=== PATIENT | female | born 2005 | race Caucasian/White ===

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

== ENCOUNTER 2023-01-19 11:52 | Emergency (ER) | payer OTHER, MEDICAID, SELFPAY ==
[2023-01-19] VITALS (8 sets, daily range): BP systolic 115–142; BP diastolic 67–79; PULSE 89–104; RESP 16–20; TEMP 36.7–36.9; O2SAT 98–100; BMI 27.2
[2023-01-19 12:04] LABS: Microscopic, Urine URINE MICROSCOPIC (MICROSCOPIC)
--- NOTE | 2023-01-19 12:05 | HMH.EDGENADL ---
Discharge Plan Disposition Patient Disposition: Home, Self-Care Condition: Fair Prescriptions Prescriptions: New ciprofloxacin HCl [Cipro] 500 mg tablet 500 mg PO BID Qty: 20 0RF metronidazole 500 mg tablet 500 mg PO Q12H 10 Days Qty: 20 0RF dicyclomine 20 mg tablet 20 mg PO QID PRN (Reason: abdominal pain) Qty: 20 0RF Referrals Follow up/Referrals: Provider,Referral, MD [Primary Care Provider] - See instructions Clinical Impressions Clinical Impression: Abdominal pain Instructions Patient Instructions: Acute Abdominal Pain, DI for Acute Abdominal Pain Discharge ED Provider: Petr Ashby General Adult HPI General Chief complaint: Abdominal Pain Stated complaint: Abd pain vomiting diarrhea Time Seen by Provider: 01/19/23 11:55 History of Present Illness HPI narrative: This is a 17-year-old white female who was at a friend's last night had passed. The aunt today presents with crampy abdominal pain nausea vomiting diarrhea. No fevers no chills no melena hematochezia or hematemesis patient said the pain occurs intermittently nonprovoked self-limited. No dysuria pyuria or hematuria. Related Data Previous Rx's Medication Instructions Recorded ciprofloxacin HCl 500 mg tablet 500 mg PO BID #20 tabs 01/19/23 (Cipro) dicyclomine 20 mg tablet 20 mg PO QID PRN abdominal pain 01/19/23 #20 tabs metronidazole 500 mg tablet 500 mg PO Q12H 10 days #20 tabs 01/19/23 Allergies Allergy/AdvReac Type Severity Reaction Status Date / Time Penicillins Allergy hives Verified 12/10/22 10:20 [facility] Disclaimer: The information contained in this section may have been updated after the patient was seen, as this information can be updated by other users. Medical History Acute blood loss anemia Surgical History No history of previous surgery Family History Other No significant family history Social History Smoking Status: Never smoker alcohol intake: never substance use type: denies use current occupational status: employed Travel in the last 8 weeks: None household members: family housing: house ROS Obtained: Yes All systems reviewed & no additional complaints except as documented Skin no rash or lesions HEENT no runny nose sore throat Pulmonary no cough or shortness of breath Cardiovascular no chest pain pressure heaviness GI see HPI no dysuria pyuria hematuria Musculoskeletal no neck or back pain Endocrine no polydipsia polyuria or polyphasia Psych no SI or HI The rest of the systems were reviewed and found to be negative Physical Exam Narrative Physical exam: Skin: Warm and dry HEENT: Normocephalic atraumatic extract muscles are intact pupils are equal and reactive to light Neck: Supple nontender Lungs: Clear to auscultation Heart: Regular rate and rhythm Abdomen: NABS soft nontender Extremities: No clubbing cyanosis or edema Neurologic: No unilateral weakness or numbness Lymphatic: No cervical or inguinal adenopathy Musculoskeletal: No tenderness of the dorsal or lumbar spine Psych: No SI or HI General General appearance: alert Respiratory Respiratory exam: Present normal lung sounds bilaterally Cardiovascular Cardiovascular exam: Present regular rate Neurological Exam Neurological exam: Present alert Medical Decision Making Rodrigo Inquiry Pt receiving controlled substance: No Vital Signs: 01/19/23 12:28 01/19/23 12:30 01/19/23 13:00 Temperature 98.5 F Temperature Source Oral Pulse Rate 96 H 89 Pulse Rate [Left Radial] 102 H Respiratory Rate 20 Blood Pressure 115/69 120/69 Blood Pressure [Right Arm] 142/79 H Blood Pressure Mean 84 85 Blood Pressure Mean [Right Arm] 100 02 Sat by Pulse Oximetry 98 98 99 Oxygen
[2023-01-19 12:08] LABS: Appearance,Urine CLEAR (Clear); Bilirubin,Urine Negative (Negative); Blood, Urine Negative (Negative); Color,Urine YELLOW (Yellow); Glucose,Urine (UA) Negative (Negative); Ketones,Urine Negative (Negative); Leukocyte Esterase,Urine Negative (Negative); Nitrate,Urine Negative (Negative); Protein,Urine Negative (Negative); Specific Gravity, Urine 1.015 (1.005-1.030); Urobilinogen,Urine 0.2 EU/dl (0.2)
[2023-01-19 12:10] LABS: Urine Pregnancy, HCG Qual. Negative (Negative)
[2023-01-19 12:14] LABS: Basophils % 0.2 % (0.1-2.0); Eosinophils # 0.2 K/mm3 (0.0-0.4); Eosinophils % 1.2 % (0.1-12.0); Lymphocytes # 0.7 K/mm3 (0.7-4.5); Lymphocytes % 4.1 % (10-50); Mean Corpuscular HGB Conc 33.3 g/dL (31.8-35.4); Mean Corpuscular Hemoglobin 26.5 pg (27.0-31.2); Mean Corpuscular Volume 79.6 fl (81-99); Mean Platelet Volume 8.2 fl (7.4-10.4); Monocytes # 0.7 K/mm3 (0.1-1.0); Monocytes % 4.7 % (1.7-9.3); Neutrophils # 14.3 K/mm3 (1.8-7.8); Neutrophils % 89.8 % (37.0-80.0); Platelet Count 289 K/mm3 (142-424); Red Blood Count 5.27 M/mm3 (4.20-5.40); Red Cell Distribution Width 14.3 % (11.5-17.5); White Blood Count 15.9 K/mm3 (4.5-13.0)
[2023-01-19 12:17] LABS: Sodium 138 mmol/L (136-145)
[2023-01-19 12:20] LABS: Alanine Aminotransferase 26 U/L (12-78); Albumin Level 4.3 g/dl (3.5-5.0); Albumin/Globulin Ratio 1.3 (1.1-1.8); Alkaline Phosphatase 79 U/L (38-126); Aspartate Amino Transferase 27 U/L (14-36); Bilirubin,Total 0.5 mg/dl (0.2-1.3); Blood Urea Nitrogen 13 mg/dl (7-17); Carbon Dioxide 27 mmol/L (22.0-30.0); Chloride 100 mmol/L (98-107); Estimated Glomerular Filt Rate 108 ml/min (>60); GFR (African American) 130 ML/MIN (>60); Globulin 3.3 g/dL (1.3-3.2); Total Protein,Serum 7.6 g/dl (6.3-8.2)
[2023-01-19 12:21] LABS: Glucose 118 mg/dl (74-100)
[2023-01-19 12:21] LABS: Bacteria,Urine Trace /lpf; WBC,Urine Occasional #/hpf (0-3)
[2023-01-19 12:23] LABS: Lipase 46 U/L (23-300)
[2023-01-19 12:26] LABS: MANUAL DIFFERENTIAL MANUAL DIFFERENTIAL (MANUAL DIFF)
--- NOTE | 2023-01-19 12:35 | PC.NURSE ---
Rounded on patient; no other needs at this time. Friend at BS. Call morrison within reach
[2023-01-19 12:36] LABS: Eosinophils % 1 % (0-3); Lymphocytes % 5 % (10-50); Monocytes % 6 % (2-9); Neutrophils % 88 % (42-76); Platelet Estimate Normal; RBC Morphology Normal; Total Cells Counted 100
--- NOTE | 2023-01-19 12:50 | CT_ITS ---
FINAL REPORT TECHNIQUE: Postcontrast axial images through the abdomen and pelvis were performed. This study was performed with techniques to keep radiation doses as low as reasonably achievable, (ALARA). Individualized dose reduction techniques using automated exposure control or adjustment of mA and/or kV according to the patient's size were employed. CLINICAL HISTORY: abd pain, n/v/d FINDINGS: Abdomen: The lung bases are clear. The liver is normal in size and attenuation. The gallbladder is present. The spleen is unremarkable. The adrenals are normal. The pancreas is unremarkable. The kidneys enhance appropriately. The aorta is normal in caliber. No free fluid or adenopathy is identified. No findings for mechanical bowel obstruction are identified. There is abnormal mucosal thickening throughout the distal small bowel extending to the terminal ileum. Pelvis: The appendix is normal. The urinary bladder is unremarkable. No free fluid, free air, abscess or adenopathy is identified. The uterus is present. There are small cysts or follicles in the ovaries. IMPRESSION: Abnormal mucosal thickening of the distal small bowel could represent infectious enteritis versus inflammatory bowel disease. Reviewed, Interpreted and Dictated by Doc Ball MD Transcribed by [employer] Authenticated and [facility]
--- NOTE | 2023-01-19 14:31 | PC.NURSE ---
Rounded on patient; no needs at this time. Call morrison within reach. Aware taht we are waiting on test results
== END 2023-01-19 15:01 | disposition home or self-care (01) ==
PROVIDERS: Emergency Provider Emergency Medicine
DX: R10.9 Unspecified abdominal pain (principal); R11.2 Nausea with vomiting, unspecified; R19.7 Diarrhea, unspecified; R93.5 Abnormal findings on diagnostic imaging of other abdominal regions, including retroperitoneum; D72.829 Elevated white blood cell count, unspecified
CPT/HCPCS: 74177; 80053; 81001; 81025; 83690; 85007; 85025; 96361; 96374; 99284; J2405; Q9967

== ENCOUNTER 2023-04-04 11:52 | Emergency (ER) | payer OTHER, MEDICAID, SELFPAY ==
[2023-04-04 12:00] VITALS: BP 143/70; PULSE 79; RESP 20; TEMP 36.3; O2SAT 100; BMI 29.4
[2023-04-04 12:16] LABS: UTC Strep Screen (Rapid) Negative (Negative)
--- NOTE | 2023-04-04 12:17 | EXP.UTC ---
Discharge Plan Disposition Patient Disposition: Home, Self-Care Condition: Good Prescriptions Prescriptions: New prednisone 20 mg tablet 20 mg PO BID Qty: 10 0RF pseudoephedrine HCl [Sudafed 12 Hour] 120 mg tablet extended release 120 mg PO BID PRN (Reason: nasal congestion) Qty: 20 0RF Referrals Follow up/Referrals: Provider,Referral, MD [Primary Care Provider] - See instructions Activity Restrictions/Add. Instructions Additional Instructions/Restrictions: rest, fluids, meds as directed Clinical Impressions Clinical Impression: Upper respiratory infection Instructions Patient Instructions: How to Care for Someone with COVID-19 Discharge ED Provider: Jazmin Rice [facility] [place] HPI General Stated complaint: body aches/chills Mode of Arrival: Ambulatory Source of Information: Patient Limitations: No Limitations Time Seen by Provider: 04/04/23 12:17 Description of Symptoms (Recalled from Triage Doc. by RN): PATIENT C/O BODY ACHES, CHILLS AND NO TASTE SINCE WEDNESDAY HEENT Symptoms (Recalled from RN notes): No Resp Symptoms (Recalled from RN notes): No Skin Symptoms (Recalled from RN notes): No MS Symptoms (Recalled from RN notes): No Functional Status (Recalled from RN notes): WNL History of Present Illness Provider Complaint: 2 day history body aches, chills, lost of taste and smell. No fever. Onset (ago): day(s) (2) Relieving factors: none Exacerbating factors: none Associated symptoms: denies other symptoms Treatments prior to arrival: none Related Data Previous Rx's Medication Instructions Recorded prednisone 20 mg tablet 20 mg PO BID #10 tabs 04/04/23 pseudoephedrine HCl 120 mg 120 mg PO BID PRN nasal congestion 04/04/23 tablet,extended release (Sudafed #20 tabs 12 Hour) Allergies Allergy/AdvReac Type Severity Reaction Status Date / Time Penicillins Allergy hives Verified 12/10/22 10:20 Worker's Comp Is this a Worker's Comp case?: No [facility] Disclaimer: The information contained in this section may have been updated after the patient was seen, as this information can be updated by other users. Medical History Acute blood loss anemia Surgical History No history of previous surgery Family History Other No significant family history Social History Smoking Status: Never smoker alcohol intake: never substance use type: denies use current occupational status: employed Travel in the last 8 weeks: None household members: family housing: house ROS Obtained: Yes All systems reviewed & no additional complaints except as documented Constitutional Constitutional: Reports body ache, Reports chills, Reports headache(s) and Reports malaise ENT Ears, Nose, Mouth, and Throat: Reports headache(s) Neurologic Neurologic: Reports headache(s) Physical Exam General General appearance: alert and in no apparent distress Head Head exam: atraumatic, normocephalic and normal inspection Eye Eye exam: Present normal appearance, PERRL and EOMI ENT ENT exam: Present normal exam, normal oropharynx, mucous membranes moist, TM's normal bilaterally and normal external ear exam Neck Neck exam: Present normal inspection, full ROM and trachea midline; Absent meningismus or lymphadenopathy Chest Chest inspection: Present normal inspection and symmetric chest wall rise; Absent tenderness Respiratory Respiratory exam: Present normal lung sounds bilaterally; Absent respiratory distress Cardiovascular Cardiovascular exam: Present regular rate and normal rhythm; Absent JVD Abdominal Exam Abdominal exam: Present soft and normal bowel sounds; Absent distention, tenderness or guarding Extremities Exam Extremities exam: Present normal inspection, full ROM and normal capillary r
[2023-04-04 12:30] VITALS: BP 143/70; PULSE 79; RESP 20; TEMP 36.3; O2SAT 100
== END 2023-04-04 12:36 | disposition home or self-care (01) ==
PROVIDERS: Emergency Provider Physician Assistant
DX: J06.9 Acute upper respiratory infection, unspecified (principal); B34.9 Viral infection, unspecified
CPT/HCPCS: 87880; 99212; 99214; G0463

== ENCOUNTER 2023-08-13 15:56 | Outpatient (CLI) | payer OTHER, MEDICAID, SELFPAY | END 2023-08-13 23:59 | PROVIDERS: Visit Provider Nurse Practitioner Family | DX: Z11.1 Encounter for screening for respiratory tuberculosis (principal) | CPT/HCPCS: 86580 ==

== ENCOUNTER 2024-02-07 12:48 | Outpatient (CLI) | payer OTHER, SELFPAY ==
[2024-02-07 14:58] LABS: HCG,Quantitative 82522 mIU/ml (0-5.42)
[2024-02-08 16:23] LABS: Progesterone 7.3 ng/mL (.)
== END 2024-02-07 23:59 | disposition home or self-care (01) ==
LOC: LAB 12:50
PROVIDERS: Visit Provider Nurse Practitioner Obstetrics & Gynecology
DX: N92.6 Irregular menstruation, unspecified (principal)
CPT/HCPCS: 36415; 84144; 84702

== ENCOUNTER 2024-02-09 17:15 | Outpatient (CLI) | payer OTHER, SELFPAY ==
[2024-02-12 16:57] LABS: Neisseria gonorrhoeae, NAA Negative (Negative)
== END 2024-02-09 23:59 | disposition home or self-care (01) ==
LOC: LAB.DROPOF 17:15
PROVIDERS: PCP Nurse Practitioner Obstetrics & Gynecology; Visit Provider Nurse Practitioner Obstetrics & Gynecology
DX: Z34.90 Encounter for supervision of normal pregnancy, unspecified, unspecified trimester (principal)
CPT/HCPCS: 87086; 87491; 87591

== ENCOUNTER 2024-02-21 13:40 | Outpatient (CLI) | payer OTHER, SELFPAY ==
--- NOTE | 2024-02-21 13:52 | US_ITS ---
PROCEDURE: US OB <= 14 WEEKS FETUS CLINICAL INDICATION: Dates and Confirmation of COMPARISON: No exams were available for comparison FINDINGS: Transvaginal sonographic images of the pelvis were obtained. From her last menstrual period she is 8weeks 6days. An intrauterine gestational sac is present with a pole with a crown-rump length of 3.74cm This correlates to a gestational age of 10weeks 5days. heart tones are present with an FHR of 167bpm. Yolk sac is noted. The yolk sac measures 6.3mm. The right ovary is seen and appears normal. The left ovary is seen and appears normal. There is no fluid in the cul-de-sac. IMPRESSION: 1. Viable fetus within the uterine cavity. 2. The fetus measures 10 weeks and 5 days. 3. Her CAMI will be revised to reflect this. The revised CAMI will be 09/13/2024. 4. Both ovaries are seen and appear normal. 5. No fluid in the cul-de-sac. Dictated by: Wilmar Scott MD 02/22/2024 10:30 Wilmar Scott MD in [place] 02/22/2024 10:30
== END 2024-02-21 23:59 | disposition home or self-care (01) ==
LOC: RAD 13:41
PROVIDERS: Visit Provider Nurse Practitioner Obstetrics & Gynecology
DX: Z36.87 Encounter for antenatal screening for uncertain dates (principal); Z3A.10 10 weeks gestation of pregnancy
CPT/HCPCS: 76801

== ENCOUNTER 2024-03-01 09:18 | Emergency (ER) | payer OTHER, SELFPAY ==
[2024-03-01 09:30] VITALS: BP 119/80; PULSE 98; RESP 18; TEMP 37; O2SAT 97; BMI 31.5
--- NOTE | 2024-03-01 09:47 | ED_ITS ---
Discharge Plan Disposition Patient Disposition: Home, Self-Care Condition: Good Prescriptions Prescriptions: No Action Classic 28 mg iron- 800 mcg tablet 1 tab PO DAILY Qty: 30 11RF progesterone micronized [Prometrium] 200 mg capsule 200 mg PO HS 30 Days Qty: 30 2RF Rx Instructions: off 7 days; repeat cycle promethazine 25 mg tablet 25 mg PO TID PRN (Reason: nausea and vomiting) Qty: 30 1RF Referrals Follow up/Referrals: Provider,Referral, MD [Primary Care Provider] - See instructions Activity Restrictions/Add. Instructions Additional Instructions/Restrictions: Drink plenty of fluids. Take tylenol for pain or fever. Follow up with your regular doctor. GO TO THE ER FOR ANY WORSENING SYMPTOMS Clinical Impressions Clinical Impression: Acute viral syndrome, Instructions Patient Instructions: DI for Viral Syndrome Print Language Print Language: [place] Discharge [place] [facility] [place] General Stated complaint: vomiting body aches Mode of Arrival: Ambulatory Source of Information: Patient Limitations: No Limitations Time Seen by Provider: 03/01/24 09:47 Description of Symptoms (Recalled from Triage Doc. by RN): PATIENT C/O BODY ACHES, VOMITING, AND SOA X 2 DAYS HEENT Symptoms (Recalled from RN notes): No Resp Symptoms (Recalled from RN notes): No Skin Symptoms (Recalled from RN notes): No MS Symptoms (Recalled from RN notes): No Functional Status (Recalled from RN notes): WNL History of Present Illness Provider Complaint: She states that for the past 3 days she has had Related Data Previous Rx's ?Medication ?Instructions ?Recorded progesterone micronized 200 mg 200 mg PO HS 30 days #30 caps 02/08/24 capsule (Prometrium) promethazine 25 mg tablet 25 mg PO TID PRN nausea and 02/08/24 vomiting #30 tabs vits no.126-ferrous fum 1 tab PO DAILY #30 tabs 02/09/24 28 mg iron-folic acid 800 mcg tablet (Classic ) Allergies Allergy/AdvReac Type Severity Reaction Status Date / Time Penicillins Allergy hives Verified 02/09/24 10:03 Worker's Comp Is this a Worker's Comp case?: No [facility] Disclaimer: The information contained in this section may have been updated after the patient was seen, as this information can be updated by other users. Medical History Acute blood loss anemia Surgical History No history of previous surgery Family History Other No significant family history Social History Smoking Status: Never smoker alcohol intake: never substance use type: denies use current occupational status: employed Travel in the last 8 weeks: None household members: family housing: house ROS Obtained: Yes All systems reviewed & no additional complaints except as documented Constitutional Constitutional: Reports chills and Reports fever(s) Eyes Eyes: Denies eye discharge ENT Ears, Nose, Mouth, and Throat: Reports as per HPI Cardiovascular Cardiovascular: Denies chest pain Respiratory Respiratory: Denies chest congestion and Reports cough Gastrointestinal Gastrointestingal: Reports nausea; Denies abdominal pain, constipation, cramping, diarrhea or vomiting Musculoskeletal Musculoskeletal: Denies arthralgias Integumentary/Breasts Skin/Breast: Denies rash Neurologic Neurologic: Denies paresthesias Physical Exam General General appearance: alert and in no apparent distress Head Head exam: atraumatic, normocephalic and normal inspection Eye Eye exam: Present normal appearance, PERRL and EOMI ENT ENT exam: Present normal exam, normal oropharynx, mucous membranes moist, TM's normal bilaterally and normal external ear exam Neck Neck exam: Present normal inspection, full ROM and trachea midline; Absent meningismus or lymphadenopathy Chest Chest inspection: Present normal inspection and symmetric chest wall rise; Absent tenderness Respiratory Respiratory exam: Present normal lung sounds bilaterally; Absent respiratory distress Cardiovascular Cardiovascular exam: Present regular rate and normal rhythm; Absent JVD Abdominal Exam Abdominal exam: Present soft and normal bowel sounds; Absent distention, tenderness or guarding Extremities Exam Extremities exam: Present normal inspection, full ROM and normal capillary refill; Absent calf tenderness Back Exam Back exam: Present normal inspection; Absent tenderness Neurological Exam Neurological exam: Present alert and oriented X3 Psychiatric Psychiatric exam: Present normal affect and normal mood Skin Skin exam: Present warm, dry, intact and normal color Lymphatic Lymphatic Findings: no adenopathy Medical Decision Making Medical Records Medical records reviewed: No I reviewed the patient's medical records. Rodrigo Inquiry Pt receiving controlled substance: No Vital Signs: 03/01/24 09:30 Temperature 98.6 F Temperature Source Oral Pulse Rate [Left Brachial] 98 H Respiratory Rate 18 Blood Pressure [Left Arm] 119/80 Blood Pressure Mean [Left Arm] 93 Blood Pressure Source [Left Arm] Automatic Cuff Blood Pressure Position [Left Arm] Sitting 02 Sat by Pulse Oximetry 97 Oxygen Delivery Method Room Air Lab Data Lab results reviewed: Yes I reviewed the patient's lab results. Orders (Tests/Meds): ORDERS Category Date Time Status Rapid PCR Covid and Flu A/B Stat Lab 03/01/24 09:45 Ordered
[2024-03-01 09:53] VITALS: BP 119/80; PULSE 98; RESP 18; TEMP 37; O2SAT 97
[2024-03-01 11:00] LABS: Coronavirus 19, PCR Not Detected (NotDetected); Influenza A, PCR Not Detected (NotDetected); Influenza B, PCR Not Detected (NotDetected)
== END 2024-03-01 09:54 | disposition home or self-care (01) ==
PROVIDERS: Emergency Provider Nurse Practitioner Family
DX: O26.891 Other specified pregnancy related conditions, first trimester (principal); R06.02 Shortness of breath; M79.18 Myalgia, other site; R11.2 Nausea with vomiting, unspecified; B34.9 Viral infection, unspecified; Z3A.01 Less than 8 weeks gestation of pregnancy
CPT/HCPCS: 87636; 99212; 99214; G0463

== ENCOUNTER 2024-03-08 10:19 | Outpatient (CLI) | payer OTHER, SELFPAY ==
[2024-03-08 10:45] LABS: Basophils # 0.1 K/mm3 (0-0.2); Basophils % 0.5 % (0.1-2.0); Eosinophils # 0.3 K/mm3 (0.0-0.4); Eosinophils % 2.9 % (0.1-12.0); Hematocrit 39.4 % (37.0-47.0); Hemoglobin 13.5 g/dL (12.2-16.2); Lymphocytes % 20.1 % (10-50); Mean Corpuscular HGB Conc 34.2 g/dL (31.8-35.4); Mean Corpuscular Hemoglobin 29.4 pg (27.0-31.2); Mean Platelet Volume 8.9 fl (7.4-10.4); Monocytes # 0.5 K/mm3 (0.1-1.0); Neutrophils % 71.5 % (37.0-80.0); Platelet Count 219 K/mm3 (142-424); Red Blood Count 4.58 M/mm3 (4.20-5.40); Red Cell Distribution Width 13.8 % (11.5-17.5); White Blood Count 9.8 K/mm3 (4.5-13.0)
[2024-03-09 07:30] LABS: HCV Ab Non Reactive (Non Reactive); Hepatitis B Surface Antigen Negative (Negative); Rubella Antibodies, IgG 1.48 index (Immune >0.99)
[2024-03-09 12:00] LABS: HIV (1&2) Antibody Rapid NONREACTIVE (NONREACTIVE)
[2024-03-09 12:14] LABS: Rapid Plasma Reagin Ab Titer Non Reactive titer (NonRea<1:1)
== END 2024-03-08 23:59 | disposition home or self-care (01) ==
LOC: LAB 10:20
PROVIDERS: Visit Provider Nurse Practitioner Obstetrics & Gynecology
DX: Z34.91 Encounter for supervision of normal pregnancy, unspecified, first trimester (principal); Z3A.13 13 weeks gestation of pregnancy
CPT/HCPCS: 36415; 85025; 86593; 86762; 86850; 87340

== ENCOUNTER 2024-04-26 08:43 | Outpatient (CLI) | payer OTHER, SELFPAY ==
--- NOTE | 2024-04-26 08:46 | US_ITS ---
PROCEDURE: US OB /MATERNAL DETAIL CLINICAL INDICATION: 20 wk OB Complete COMPARISON: US US OB <= 14 WEEKS FETUS from 02/21/2024 FINDINGS: Transabdominal sonographic images of the pelvis were obtained. From her established due date she is 20 weeks 0 days. Single viable intrauterine gestation. Cephalic position. Placenta: Posteriorplacenta grade 1. There is an average amount of fluid. The cervix appears satisfactory. Closed and measuring 3.2 cm in length. Complete survey performed and was unremarkable on the submitted images as in PACS. No discrete anomalies identified on survey imaging by technologist. Active fetus. Three-vessel cord with satisfactory umbilical cord insertion. 4- chamber heart noted. [place]. The rest of the cardiac exam was incomplete due to position. Survey of brain & ventricles Unremarkable. Cerebellum, thalamus, choroid plexus, cisterna magna appear normal. Face and neck survey unremarkable. Profile and nasion were not seen due to position but lips and nose appeared normal. Diaphragm and chest views unremarkable. Abdomen: Both kidneys noted and unremarkable. Stomach and bladder noted and satisfactory. Spine: Survey of the spine satisfactory with no anomalies identified nor imaged. Cervical, thoracic, lower spine appear normal. Both arms and legs noted. Amniotic Fluid: Adequate. MVP 5.56 cm Measurements: Average ultrasound age 20weeks 1day. Estimated due date by ultrasound age 0209/12/2024. Estimated weight 325g BPD = 20weeks 1day HC = 20weeks 0 days AC = 19weeks 4days FL = 20weeks 5days Growth Percentile= 44 Heart Rate = 133bpm Cerebellum = 19weeks 6days Humerus = 20weeks 3days HC/AC is 1.24 FL/BPD is 0.72 FL/AC is 0.24 IMPRESSION: 1. Viable fetus in the cephalic presentation with a posterior placenta grade 1. 2. The fluid is within normal limits MVP 5.56 cm. 3. Anatomical scan appears normal. 4. Cardiac views and profile views were incomplete due to position. Suggest repeat scan in 2-3 weeks. 5. biometry is consistent with the dates. Dictated by: Wilmar Scott MD 04/26/2024 10:21 Wilmar Scott MD in [place] 04/26/2024 10:21
== END 2024-04-26 23:59 | disposition home or self-care (01) ==
LOC: RAD 08:44
PROVIDERS: Visit Provider Nurse Practitioner Obstetrics & Gynecology
DX: Z36.3 Encounter for antenatal screening for malformations (principal); Z3A.20 20 weeks gestation of pregnancy
CPT/HCPCS: 76811

== ENCOUNTER 2024-05-15 09:41 | Outpatient (CLI) | payer OTHER, SELFPAY ==
--- NOTE | 2024-05-15 09:41 | US_ITS ---
PROCEDURE: US OB FOLLOW UP CLINICAL INDICATION: follow up ,repeat views of fetus heart and spine COMPARISON: US US OB <= 14 WEEKS FETUS from 02/21/2024 US US OB /MATERNAL DETAIL from 04/26/2024 FINDINGS: Transabdominal sonographic images of the pelvis were obtained. The following parameters are obtained: From her established due date she is 22weeks 5days Viable fetus in the cephalic presentation with a posterior placenta grade 1. The cervix measures 3.3 cm heart rate: 144bpm bpm. Amniotic fluid: Appears normal No obvious anomalies evident. profile seen, stomach, bladder, kidneys, three-vessel cord, four chamber heart appear normal. Heart: Four-chamber view, LVOT, RVOT, three-vessel view appear normal. profile and nasion seen and appear normal. spine: Cervical, thoracic and lower spine appear normal. IMPRESSION: 1. Viable fetus in the cephalic presentation with a posterior placenta grade 1. 2. The fluid is within normal limits. 3. Limited and scan appears normal. Heart and spinal views are seen and appear normal. Profile is seen and appears normal but was still difficult to obtain completely. Dictated by: Wilmar Scott MD 05/15/2024 16:28 Wilmar Scott MD in [place] 05/15/2024 16:28
== END 2024-05-15 23:59 | disposition home or self-care (01) ==
LOC: RAD 09:41
PROVIDERS: PCP Nurse Practitioner Obstetrics & Gynecology; Visit Provider Nurse Practitioner Obstetrics & Gynecology
DX: Z36.2 Encounter for other antenatal screening follow-up (principal); Z3A.22 22 weeks gestation of pregnancy
CPT/HCPCS: 76816

== ENCOUNTER 2024-06-08 09:50 | Outpatient (CLI) | payer OTHER, SELFPAY ==
[2024-06-08 10:17] LABS: Basophils # 0.1 K/mm3 (0-0.2); Basophils % 0.5 % (0.1-2.0); Eosinophils # 0.3 K/mm3 (0.0-0.4); Eosinophils % 2.7 % (0.1-12.0); Hemoglobin 12.6 g/dL (12.2-16.2); Lymphocytes % 20.8 % (10-50); Mean Corpuscular HGB Conc 34.9 g/dL (31.8-35.4); Mean Corpuscular Hemoglobin 29.6 pg (27.0-31.2); Mean Corpuscular Volume 84.8 fl (81-99); Mean Platelet Volume 9.1 fl (7.4-10.4); Monocytes # 0.4 K/mm3 (0.1-1.0); Monocytes % 4.4 % (1.7-9.3); Neutrophils # 6.8 K/mm3 (1.8-7.8); Neutrophils % 71.6 % (37.0-80.0); Platelet Count 211 K/mm3 (142-424); Red Blood Count 4.24 M/mm3 (4.20-5.40); Red Cell Distribution Width 13.9 % (11.5-17.5); White Blood Count 9.5 K/mm3 (4.5-13.0)
[2024-06-08 10:48] LABS: Glucose,Fasting 92 mg/dl (74-100)
[2024-06-08 11:37] LABS: Glucose 1 Hour 127 mg/dL (74-100)
[2024-06-09 11:15] LABS: Rapid Plasma Reagin Ab Titer Non Reactive titer (NonRea<1:1)
== END 2024-06-08 23:59 | disposition home or self-care (01) ==
LOC: LAB 09:51
PROVIDERS: Visit Provider Nurse Practitioner Obstetrics & Gynecology
DX: Z34.90 Encounter for supervision of normal pregnancy, unspecified, unspecified trimester (principal)
CPT/HCPCS: 36415; 82951; 85025; 86593

== ENCOUNTER 2024-06-09 10:13 | Emergency (ER) | payer OTHER, SELFPAY ==
[2024-06-09 11:45] VITALS: BP 121/66; PULSE 87; RESP 22; TEMP 36.9; O2SAT 97; BMI 31.0
[2024-06-09 11:57] LABS: UTC Strep Screen (Rapid) Negative (Negative)
--- NOTE | 2024-06-09 12:16 | ED_ITS ---
Discharge Plan Disposition Patient Disposition: Home, Self-Care Condition: Good Prescriptions Prescriptions: New azithromycin [Zithromax Z-Alberto] 250 mg tablet See Rx Instructions .ROUTE .COMPLEX 5 Days Qty: 6 0RF Rx Instructions: For 250 mg dose pack: take 500 mg today (day 1), then 250 mg for 4 days (days 2-5) Referrals Follow up/Referrals: Provider,Referral, MD [Primary Care Provider] - See instructions Activity Restrictions/Add. Instructions Additional Instructions/Restrictions: Call and speak with your OBGYN clinic to discuss what you can take Over the counter for cough Gargle warm salt water to help ease throat irritation Follow up with your Family Doctor if needed Take medication as prescribed Cool mist humidifer may help with nasal congestion and cough Clinical Impressions Clinical Impression: Otitis media Instructions Patient Instructions: Middle Ear Infection, Azithromycin Print Language Print Language: [place] Discharge ED Provider: Nayely Brady [facility] [place] General Stated complaint: cough, sore throat, 4 days Mode of Arrival: Ambulatory Source of Information: Patient Limitations: No Limitations Time Seen by Provider: 06/09/24 12:16 Description of Symptoms (Recalled from Triage Doc. by RN): PATIENT C/O SORE THROAT, COUGH, SOA, AND EAR PAIN X 3-4 DAYS. PATIENT IS 6 MONTHS HEENT Symptoms (Recalled from RN notes): Yes Resp Symptoms (Recalled from RN notes): Yes Skin Symptoms (Recalled from RN notes): No MS Symptoms (Recalled from RN notes): No Functional Status (Recalled from RN notes): WNL History of Present Illness Provider Complaint: Patient 6mths OB states that she has been having sore throat, cough, pain and pressure in both ears, and chest congestion for several days now States today she wasnt feeling any better so she came in to get checked Related Data Previous Rx's ?Medication ?Instructions ?Recorded azithromycin 250 mg tablet See Rx Instructions PO .COMPLEX 5 06/09/24 (Zithromax Z-Alberto) days #6 tabs Allergies Allergy/AdvReac Type Severity Reaction Status Date / Time Penicillins Allergy hives Verified 05/24/24 09:22 Worker's Comp Is this a Worker's Comp case?: No [facility] Disclaimer: The information contained in this section may have been updated after the patient was seen, as this information can be updated by other users. Medical History Acute blood loss anemia Surgical History No history of previous surgery Family History Other No significant family history Social History Smoking Status: Never smoker alcohol intake: never substance use type: denies use current occupational status: employed Travel in the last 8 weeks: None household members: family housing: house ROS Obtained: Yes All systems reviewed & no additional complaints except as documented and Yes Systems reviewed as appropriate & no additional complaints except as documented Constitutional Constitutional: Reports system reviewed and no additional complaints, except as documented and Reports as per HPI ENT Ears, Nose, Mouth, and Throat: Reports system reviewed and no additional complaints, except as documented, Reports as per HPI, Reports otalgia, Reports nasal congestion, Reports nasal discharge and Reports sore throat Cardiovascular Cardiovascular: Reports system reviewed and no additional complaints, except as documented and Reports as per HPI Respiratory Respiratory: Reports system reviewed and no additional complaints, except as documented, Reports as per HPI, Reports chest congestion and Reports cough Gastrointestinal Gastrointestingal: Reports system reviewed and no additional complaints, except as documented and as per HPI Musculoskeletal Musculoskeletal: Reports system reviewed and no additional complaints, except as documented and Reports as per HPI Physical Exam General General appearance: alert and in no apparent distress ENT ENT exam: Present mucous membranes moist Expanded ENT Exam TM/Canal exam: Left TM: erythema and bulging Nose exam: Present sinus tenderness Throat exam: Present other (Pharyngeal erythema noted with PND) Respiratory Respiratory exam: Present normal lung sounds bilaterally; Absent respiratory distress or wheezes Cardiovascular Cardiovascular exam: Present regular rate, normal rhythm and normal heart sounds Neurological Exam Neurological exam: Present alert, oriented X3 and normal gait Medical Decision Making Medical Records Screening: Per USPSTF and CDC recommendations, given the prevalence of disease in our region, it is our hospital?s policy to screen for HIV and viral Hepatitis for all patients aged 18 and over and those with ongoing risk factors. Rodrigo Inquiry Pt receiving controlled substance: No Rodrigo was queried for this patient: No Vital Signs: 06/09/24 11:45 Temperature 98.5 F Temperature Source Oral Pulse Rate [Left Brachial] 87 Respiratory Rate 22 Blood Pressure [Left Arm] 121/66 Blood Pressure Mean [Left Arm] 84 Blood Pressure Source [Left Arm] Automatic Cuff Blood Pressure Position [Left Arm] Sitting 02 Sat by Pulse Oximetry 97 Oxygen Delivery Method Room Air Lab Data Lab results reviewed: Yes I reviewed the patient's lab results. Lab Results 06/09/24 11:56: Strep Scn Rapid Clinic Negative Orders (Tests/Meds): ORDERS Category Date Time Status Strep Screen Confirmation Stat Micro 06/09/24 11:56 Received Medical Decision Narrative: Medication discussed with pharmacy to make sure safe for use during
[2024-06-09 12:26] VITALS: BP 121/66; PULSE 87; RESP 22; TEMP 36.9; O2SAT 97
== END 2024-06-09 12:29 | disposition home or self-care (01) ==
PROVIDERS: Emergency Provider Nurse Practitioner
DX: H66.93 Otitis media, unspecified, bilateral (principal)
CPT/HCPCS: 87880; 99213; G0381

== ENCOUNTER 2024-08-15 09:58 | Outpatient (CLI) | payer BC, SELFPAY | END 2024-08-15 23:59 | disposition home or self-care (01) | LOC: LAB.DROPOF 08-17 09:59 | PROVIDERS: Visit Provider Nurse Practitioner Obstetrics & Gynecology | DX: O10.919 Unspecified pre-existing hypertension complicating pregnancy, unspecified trimester (principal) | CPT/HCPCS: 86403 ==

== ENCOUNTER 2024-08-15 15:27 | Outpatient (CLI) | payer BC, SELFPAY ==
[2024-08-15 15:59] VITALS: BMI 74.4
[2024-08-15 16:00] VITALS: BMI 33.7
[2024-08-15 16:15] LABS: Basophils % 0.3 % (0.1-2.0); Eosinophils # 0.2 K/mm3 (0.0-0.4); Eosinophils % 1.3 % (0.1-12.0); Hematocrit 38.5 % (37.0-47.0); Hemoglobin 12.8 g/dL (12.2-16.2); Lymphocytes # 1.9 K/mm3 (0.7-4.5); Lymphocytes % 15.3 % (10-50); Mean Corpuscular HGB Conc 33.2 g/dL (31.8-35.4); Mean Corpuscular Hemoglobin 27.8 pg (27.0-31.2); Mean Corpuscular Volume 83.7 fl (81-99); Mean Platelet Volume 11.4 fl (7.4-10.4); Monocytes # 0.8 K/mm3 (0.1-1.0); Monocytes % 6.6 % (1.7-9.3); Neutrophils # 9.6 K/mm3 (1.8-7.8); Neutrophils % 75.7 % (37.0-80.0); Platelet Count 214 K/mm3 (142-424); Red Cell Distribution Width 13.5 % (11.5-17.5); White Blood Count 12.6 K/mm3 (4.8-10.8)
[2024-08-15 16:19] LABS: Chloride 103 mmol/L (98-107)
[2024-08-15 16:20] LABS: Potassium 3.7 mmoL/L (3.5-5.1); Sodium 131 mmol/L (136-145)
[2024-08-15 16:23] LABS: Alanine Aminotransferase 18 U/L (12-78); Anion Gap 9.7 mEq/L (5-15); Aspartate Amino Transferase 20 U/L (14-36); Blood Urea Nitrogen 7 mg/dl (7-17); Calcium 9.5 mg/dl (8.4-10.2); Carbon Dioxide 22 mmol/L (22.0-30.0); Creatinine Clearance Estimated 308 mL/min (50-200); Estimated Glomerular Filt Rate 156 ml/min (>60); GFR (African American) 188 ML/MIN (>60); Glucose 88 mg/dl (74-100)
[2024-08-15 16:45] LABS: Uric Acid 4.2 mg/dl (2.5-6.2)
[2024-08-15 16:50] LABS: Activated Partial Thrombo Time 27.1 seconds (22.8-30.6); Fibrinogen 547 mg/dL (229.9-363.5); INR 0.96 (0.9-1.1); Prothrombin Time 10.8 seconds (10.1-12.5)
[2024-08-15] MEDS: LABETALOL 5MG/ML 20ML MDV 20 MG IV (17:44)
[2024-08-15] MEDS: LACTATED RINGERS 1000ML 1,000 ML 999 ML IV (17:44)
[2024-08-15] MEDS: SODIUM CHLORIDE 0.9% 10ML FLUSH SYRINGE 10 ML IV (17:44)
[2024-08-15] MEDS: LABETALOL 100MG TABLET 200 MG PO (17:45)
--- NOTE | 2024-08-15 17:51 | EXP.ACUTE.PN ---
Subjective *Date: 08/15/24 *Time: 17:51 Interval history: She was seen in the office this afternoon and sent to labor and delivery because her blood pressure was elevated. She was seen in labor and delivery and her blood pressure spiked when she was quite nervous but they resolved with rest and reassurance. Her blood pressures in the 130s over 80s. All of her [facility] blood work has been normal. Medical Exam Vital signs and Labs for Last 24 Hours: Intake and Output 08/15/24 08/15/24 08/15/24 03:59 11:59 19:59 Other: Weight 242 lb Patient Weight 08/16/24 11:59 Weight 242 lb Laboratory Results - last 24 hr 08/15/24 16:00: WBC 12.6 H, RBC 4.60, Hgb 12.8, Hct 38.5, MCV 83.7, MCH 27.8, MCHC 33.2, RDW 13.5, Plt Count 214, MPV 11.4 H, Neut % (Auto) 75.7, Lymph % (Auto) 15.3, [place] % (Auto) 6.6, Eos % (Auto) 1.3, Baso % (Auto) 0.3, Neut # (Auto) 9.6 H, Lymph # (Auto) 1.9, [place] # (Auto) 0.8, Eos # (Auto) 0.2, Baso # (Auto) 0.0, PT 10.8, INR 0.96, APTT 27.1, Fibrinogen 547 H, Sodium 131 L, Potassium 3.7, Chloride 103, Carbon Dioxide 22, Anion Gap 9.7, BUN 7, Creatinine 0.50 L, Estimated Creat Clear 308 H, Estimated GFR 156, Est GFR ( Amer) 188, Glucose 88, Uric Acid 4.2, Calcium 9.5, AST 20, ALT 18 I & O for Labs for Last 24 Hours: Intake & Output 08/13/24 08/14/24 08/15/24 08/16/24 11:59 11:59 11:59 11:59 Weight 242 lb Head: Present atraumatic ENT: Present normal exam Neck: Present normal inspection Respiratory: Absent accessory muscle use Cardiac: Present Reg Rate and Rhythm and Regular Rate GI: Present soft; Absent tenderness Rectal (female): Present deferred (female): Present deferred Assessment and Plan *Assessment and plan (1) Chronic hypertension during , antepartum: Status: Acute Category: Medical Code(s): O10.919 - Unspecified pre-existing hypertension complicating , unspecified trimester Plan I suspect that she has labile hypertension and at this time we cannot rule out superimposed -induced hypertension but her blood work is all normal. I have elected to give her labetalol 200 mg twice daily and she received her first dose in labor and delivery tonight. I will follow-up with her in 48 hours. I have called her in a prescription for labetalol 200 twice daily and she will product picker this from the pharmacy tomorrow morning. We gave her the warning signs for worsening high blood pressure.
[2024-08-15 18:14] VITALS: BP 164/93
[2024-08-15] MEDS: LABETALOL 5MG/ML 20ML MDV 40 MG IV (18:29)
== END 2024-08-15 19:03 | disposition home or self-care (01) ==
LOC: OBOUT 15:31 → OB 15:32
PROVIDERS: Visit Provider Nurse Practitioner Obstetrics & Gynecology
DX: O10.913 Unspecified pre-existing hypertension complicating pregnancy, third trimester (principal); Z3A.35 35 weeks gestation of pregnancy
CPT/HCPCS: 80048; 84450; 84460; 84550; 85025; 85384; 85610; 85730; 86403; G0463; J1920; J7120

== ENCOUNTER 2024-08-18 09:54 | Outpatient (CLI) | payer BC, SELFPAY ==
--- NOTE | 2024-08-18 10:00 | US_ITS ---
PROCEDURE: US OB BIOPHYSICAL PROFILE CLINICAL INDICATION: SGA COMPARISON: US US OB <= 14 WEEKS FETUS from 02/21/2024 US US OB /MATERNAL DETAIL from 04/26/2024 US US OB FOLLOW UP from 05/15/2024 FINDINGS: Transabdominal sonographic images of the uterus were obtained. From her established due date she is 36weeks 2days. The following parameters are obtained: Viable Fetus in the cephalic presentation with a posterior placenta grade 2. Average ultrasound age is 36weeks 4days Estimated weight 2,948g, 6 lb 8 oz The cervix measures 3.79 cm. Measurements: heart Rate = 152bpm BPD = 36weeks 4days, 68 percentile HC = 36weeks 2days, 19 percentile AC = 36weeks 2days, 60 percentile FL = 37weeks 1day, 67 percentile HC/AC is 0.99 FL/BPD is 0.8 FL/AC is 0.22 58 percentile Amniotic fluid index: 9.47cm, MVP 4.23 cm Qualitative AFV:2 Breathing movements: 2 Gross Body Movements: 2 Tone: 2 Biophysical profile score: 8 Doppler evaluation of the umbilical artery: SD ratio: 2.1-2.31 Resistive index: 0.57 No obvious anomalies evident.Kidneys, stomach, bladder, three-vessel cord appear normal. IMPRESSION: 1. Viable fetus in the cephalic presentation with a posterior placenta grade 2. 2. The fluid is within normal limits with an amniotic fluid index 9.47 cm, MVP 4.23 cm. 3. Biophysical profile is 8/8 with good breathing movement and movement seen. 4. SD ratio is normal 2.1-2.31. 5. Limited anatomical scan appears normal. Dictated by: Wilmar Scott MD 08/18/2024 11:24 Wilmar Scott MD in [place] 08/18/2024 11:24
== END 2024-08-18 23:59 | disposition home or self-care (01) ==
LOC: RAD 09:57
PROVIDERS: Visit Provider Nurse Practitioner Obstetrics & Gynecology
DX: O36.5930 Maternal care for other known or suspected poor fetal growth, third trimester, not applicable or unspecified (principal); O10.913 Unspecified pre-existing hypertension complicating pregnancy, third trimester; Z3A.36 36 weeks gestation of pregnancy
CPT/HCPCS: 76816; 76819; 76820

== ENCOUNTER 2024-09-03 02:00 | Inpatient (IN) | payer BC, SELFPAY ==
[2024-09-03 01:46] VITALS: BMI 33.6
[2024-09-03 01:50] VITALS: BP 136/84; PULSE 85; RESP 18; TEMP 36.8; O2SAT 100; BMI 33.6
[2024-09-03 02:04] LABS: Microscopic, Urine URINE MICROSCOPIC (MICROSCOPIC)
[2024-09-03 02:08] LABS: Bilirubin,Urine Negative (Negative); Blood, Urine 1+ (Negative); Color,Urine YELLOW (Yellow); Glucose,Urine (UA) Negative (Negative); Ketones,Urine TRACE (Negative); Leukocyte Esterase,Urine Negative (Negative); Nitrate,Urine Negative (Negative); PH,Urine 7.5 (5.0-8.5); Protein,Urine 1+ (Negative); Specific Gravity, Urine 1.015 (1.005-1.030); Urobilinogen,Urine 0.2 EU/dl (0.2)
[2024-09-03 02:12] LABS: Appearance,Urine Slightly Cloudy (Clear)
[2024-09-03 02:15] LABS: Fetal Membrane Rupture (Rapid) Positive (Negative)
[2024-09-03 02:20] LABS: Bacteria,Urine Trace /lpf; WBC,Urine Occasional #/hpf (0-3)
[2024-09-03 02:23] LABS: Amphetamine/Metha Screen,Urine Negative ng/ml (<1000); Barbiturates Screen,Urine Negative ng/ml (<200); Benzodiazepines Screen,Urine Negative ng/ml (<200); Cannabinoid Screen,Urine Negative ng/ml (<50); Cocaine Screen,Urine Negative ng/ml (<300); Methadone Screen,Urine Negative ng/ml (<300); Opiate Screen,Urine Negative ng/ml (<300); Phencyclidine Screen,Urine Negative ng/ml (<25)
[2024-09-03 02:31] LABS: Basophils % 0.3 % (0.1-2.0); Eosinophils # 0.2 K/mm3 (0.0-0.4); Eosinophils % 1.4 % (0.1-12.0); Hematocrit 36.9 % (37.0-47.0); Hemoglobin 12.5 g/dL (12.2-16.2); Lymphocytes # 2.7 K/mm3 (0.7-4.5); Mean Corpuscular HGB Conc 33.9 g/dL (31.8-35.4); Mean Corpuscular Hemoglobin 27.6 pg (27.0-31.2); Mean Corpuscular Volume 81.5 fl (81-99); Mean Platelet Volume 11.9 fl (7.4-10.4); Monocytes # 0.8 K/mm3 (0.1-1.0); Monocytes % 6.9 % (1.7-9.3); Neutrophils # 7.5 K/mm3 (1.8-7.8); Platelet Count 202 K/mm3 (142-424); Red Blood Count 4.53 M/mm3 (4.20-5.40); Red Cell Distribution Width 13.8 % (11.5-17.5); White Blood Count 11.2 K/mm3 (4.8-10.8)
[2024-09-03] MEDS: OXYTOCIN 10 UNITS/ML VIAL 10 UNIT IM (02:33)
--- NOTE | 2024-09-03 02:40 | EXP.DN ---
Delivery Note Delivery Date:: 09/03/24 Delivery Time:: :23 Anesthesia Type: None Was labor medically induced?: No Induction method: none Gestational age (weeks): 38 delivered prior to 39 weeks?: Yes Justification for early elective delivery:: Active Labor Gender: Male at 1 minute: 8 at 5 minutes: 9 Delivery Procedure:: She is a 19-year-old 2 para 1 at 38 and 4 weeks gestational age. She thought she rupture membranes at home and came in in active labor. She progressed rapidly to full dilation and delivered spontaneously a liveborn male child at 2:29 AM on the morning of September 03, 2023. On deliver the head there was a loose nuchal cord which was reduced followed by the rest of his body atraumatically. The baby was vigorous and cried spontaneously. We allowed the cord to continue to pulsate for approximately 1 minute and the cord was then doubly clamped and cut. The baby was placed on the mother's abdomen for further care. The nurse send Apgars of 8 at 1 minute and 9 at 5 minutes. I then obtained cord blood. She received IM oxytocin and using gentle traction on the cord and countertraction the fundus I was able to easily deliver the placenta 4 minutes after delivery. Had a normal three-vessel cord. There were no perineal or vaginal lacerations. She has O+ blood, she is rubella immune and was group B streptococcus positive. She did receive 1 dose of clindamycin. Estimated blood loss was 100 cc. Placental Delivery Description: Spontaneous
[2024-09-03 02:41] LABS: Chloride 106 mmol/L (98-107); Potassium 3.7 mmoL/L (3.5-5.1); Sodium 137 mmol/L (136-145)
[2024-09-03 02:44] LABS: Anion Gap 15.7 mEq/L (5-15); Blood Urea Nitrogen 4 mg/dl (7-17); Carbon Dioxide 19 mmol/L (22.0-30.0); Creatinine Clearance Estimated 307 mL/min (50-200); Estimated Glomerular Filt Rate 156 ml/min (>60); GFR (African American) 188 ML/MIN (>60)
[2024-09-03 02:45] LABS: Glucose 92 mg/dl (74-100)
--- NOTE | 2024-09-03 02:48 | EXP.OB.APHP ---
OB - H&P: HPI Antepartum History of Present Illness Chief complaint: Active labor, gestational hypertension History of present illness: She is a 19-year-old 2 para 1 at 38 and 4 weeks gestational age. She arrived in active labor and was found to be 6 cm dilated with ruptured membranes. History of Present Criteria for establishing EDC:: LMP confirmed by 1st trimester US care: good care Ultrasounds: normal 1st trimester US and normal mid trimester US Obstetrical complications: gestational hypertension Medical complications: none Labs Blood type: O (+) positive Rubella: immune RPR/VDRL: nonreactive GBS status: positive HBsAG: negative PFSH PFS Disclaimer: The information contained in this section may have been updated after the patient was seen, as this information can be updated by other users. Medical History Acute blood loss anemia Surgical History No history of previous surgery Family History Other No significant family history Social History Smoking Status: Never smoker alcohol intake: never substance use type: denies use current occupational status: unemployed Travel in the last 8 weeks: None household members: family housing: house Have you lived/traveled outside [place] in past 30 days?: No Contact w/someone who lives/traveled outside [place] past 30 days?: No Exposure to someone with infectious disease in past 14 days?: No Do you have a fever (greater than 100.4 F or 38 C)?: No Have you tested positive for COVID-19: No Exposed to someone with COVID-19 in past 14 days?: No Do you have a sore throat?: No Do you have a cough?: No Do you have any weakness?: No Do you have any diarrhea?: No Are you experiencing any unusual bleeding?: No Do you have any muscle aches/pain?: No Do you have any abdominal pain?: No Are you experiencing loss of taste or smell?: No Other Medical History Have you received the Flu Vaccine for this season: No Have you received the Pneumonia Vaccine: No Review of Systems Review of Systems Review of systems:: pertinent systems reviewed and negative unless documented below Meds Home Medications and Allergies Home Medications ?Medication ?Instructions ?Recorded ?Confirmed ?Type labetalol 200 mg tablet 200 mg PO BID #60 tabs 08/15/24 08/31/24 Rx New Prescriptions to Start Prescriptions: Allergies Allergy/AdvReac Type Severity Reaction Status Date / Time Penicillins Allergy hives Verified 08/31/24 13:49 OB - H&P: Exam Routine HEENT Exam Head: Present normocephalic Eye: Present EOMI ENT: Present mucous membranes moist Routine Respiratory Exam Present normal respiratory effort; Absent accessory muscle use Routine Cardiovascular Exam Present RRR Routine Abdominal Exam Present soft OB - Results Labs Labs: Short CBC 09/03/24 Range/Units 02:15 WBC 11.2 H (4.8-10.8) K/mm3 Hgb 12.5 (12.2-16.2) g/dL Hct 36.9 L (37.0-47.0) % Plt Count 202 (142-424) K/mm3 BMP 09/03/24 02:15 Sodium 137 Potassium 3.7 Chloride 106 Carbon Dioxide 19 L BUN 4 L Creatinine 0.50 L Glucose 92 Calcium 9.0 Urine 09/03/24 Range/Units 01:52 Urine Color Yellow (Yellow) Urine Appearance Slightly cloudy (Clear) Urine pH 7.5 (5.0-8.5) Ur Specific [place] 1.015 (1.005-1.030) Urine Protein 1+ A (Negative) Urine Glucose (UA) Negative (Negative) OB - A/P Antepartum (1) Chronic hypertension during , antepartum: Status: Acute (2) Normal delivery: Status: Acute Additional Plan Planning to breastfeed?: Yes Additional Information:: She is admitted for delivery.
[2024-09-03] MEDS: ACETAMINOPHEN 500MG TAB 1000 MG PO ×3 (03:30→20:48)
[2024-09-03] MEDS: IBUPROFEN 400 MG TABLET 800 MG PO ×3 (03:30→20:48)
[2024-09-03] MEDS: BENZOCAINE-MENTHOL SPRAY 56GM CAN TP (04:43)
[2024-09-03] MEDS: WITCH HAZEL 40 PADS/BOX 1 EACH TP (04:45)
[2024-09-03 07:30] VITALS: BP 141/74; PULSE 84; RESP 19; TEMP 36.6; O2SAT 99
[2024-09-03] MEDS: LABETALOL 100MG TABLET 200 MG PO ×2 (08:17→20:48)
--- NOTE | 2024-09-03 09:27 | EXP.ACUTE.PN ---
Subjective *Date: 09/03/24 *Time: 09:27 Interval history: She is doing well this morning. She is eating and drinking and ambulating. She is bottlefeeding. Her lochia is normal. Her blood pressure is normal. Medical Exam Vital signs and Labs for Last 24 Hours: Vital Signs Temp Pulse Resp BP Pulse Ox O2 Del Method 09/03/24 07:30 97.8 F 84 19 141/74 H 99 Room Air 09/03/24 01:50 98.2 F 85 18 136/84 100 Room Air Intake and Output 09/02/24 09/03/24 09/03/24 19:59 03:59 11:59 Other: Weight 241 lb Patient Weight 09/03/24 11:59 Weight 241 lb Laboratory Results - last 24 hr 09/03/24 01:52: Urine Color Yellow, Urine Appearance Slightly cloudy, Urine pH 7.5, Ur Specific [place] 1.015, Urine Protein 1+ A, Urine Glucose (UA) Negative, Urine Ketones Trace, Urine Blood 1+ A, Urine Nitrate Negative, Urine Bilirubin Negative, Urine Urobilinogen 0.2, Ur Leukocyte Esterase Negative, Urine RBC 10-20, Urine WBC Occasional, Ur Squamous Epith Cells 3-5, Urine Bacteria Trace, Membrane Rupture Positive A, Urine Opiates Screen Negative, Urine Methadone Screen Negative, Ur Barbituates Screen Negative, Ur Phencyclidine Scrn Negative, Ur Amphetamines Screen Negative, U Benzodiazepines Scrn Negative, Urine Cocaine Screen Negative, U Marijuana (THC) Screen Negative 09/03/24 02:15: WBC 11.2 H, RBC 4.53, Hgb 12.5, Hct 36.9 L, MCV 81.5, MCH 27.6, MCHC 33.9, RDW 13.8, Plt Count 202, MPV 11.9 H, Neut % (Auto) 67.0, Lymph % (Auto) 24.0, [place] % (Auto) 6.9, Eos % (Auto) 1.4, Baso % (Auto) 0.3, Neut # (Auto) 7.5, Lymph # (Auto) 2.7, [place] # (Auto) 0.8, Eos # (Auto) 0.2, Baso # (Auto) 0.0, Sodium 137, Potassium 3.7, Chloride 106, Carbon Dioxide 19 L, Anion Gap 15.7 H, BUN 4 L, Creatinine 0.50 L, Estimated Creat Clear 307 H, Estimated GFR 156, Est GFR ( Amer) 188, Glucose 92, Calcium 9.0, Blood Type O Positive, Antibody Screen Negative I & O for Labs for Last 24 Hours: Intake & Output 08/31/24 09/01/24 09/02/24 09/03/24 11:59 11:59 11:59 11:59 Weight 241 lb Head: Present normocephalic Neck: Present normal inspection Respiratory: Present normal respiratory effort; Absent accessory muscle use Assessment and Plan *Assessment and plan (1) Chronic hypertension during , antepartum: Status: Acute Category: Medical Code(s): O10.919 - Unspecified pre-existing hypertension complicating , unspecified trimester (2) Normal delivery: Status: Acute Category: Medical Code(s): O80 - Encounter for full-term uncomplicated delivery Plan She is doing well this morning. Her lochia is normal. She is bottlefeeding. Her blood pressure is normal. We will continue with her labetalol 200 mg twice daily. We will plan to send her home tomorrow afternoon.
[2024-09-03 11:26] VITALS: BP 128/66
[2024-09-03] MEDS: SENNA 8.6MG TABLET 8.6 MG PO (20:48)
[2024-09-04 06:54] LABS: Hematocrit 31.4 % (37.0-47.0); Hemoglobin 10.4 g/dL (12.2-16.2)
[2024-09-04] MEDS: ACETAMINOPHEN 500MG TAB 1000 MG PO (08:01)
[2024-09-04] MEDS: LABETALOL 100MG TABLET 200 MG PO ×2 (08:02→20:19)
--- NOTE | 2024-09-04 10:17 | EXP.ACUTE.PN ---
Subjective *Date: 09/04/24 *Time: 10:17 Interval history: She is doing very well this morning. She is eating and drinking and ambulating. She is bottlefeeding. Her lochia is normal. Medical Exam Vital signs and Labs for Last 24 Hours: Vital Signs BP 09/03/24 11:26 128/66 Laboratory Results - last 24 hr 09/04/24 06:36: Hgb 10.4 L, Hct 31.4 L I & O for Labs for Last 24 Hours: Intake & Output 09/01/24 09/02/24 09/03/24 09/04/24 11:59 11:59 11:59 11:59 Weight 241 lb Head: Present normocephalic Neck: Present normal inspection Respiratory: Present normal respiratory effort; Absent accessory muscle use Assessment and Plan *Assessment and plan (1) Chronic hypertension during , antepartum: Status: Acute Category: Medical Code(s): O10.919 - Unspecified pre-existing hypertension complicating , unspecified trimester (2) Normal delivery: Status: Acute Category: Medical Code(s): O80 - Encounter for full-term uncomplicated delivery Plan She is doing very well this morning. She is eating and drinking and ambulating. She is bottlefeeding. Her lochia is normal. She did have 1 elevation in her blood pressure last night but received labetalol and this has now settled. She will continue with her labetalol twice daily. We will plan to send her home tomorrow.
[2024-09-04] MEDS: IBUPROFEN 400 MG TABLET 800 MG PO (11:58)
[2024-09-04] MEDS: PRENATAL MULTIVITAMIN W/IRON 1 EACH PO (16:05)
[2024-09-05 04:00] VITALS: BP 135/75; PULSE 65; RESP 18; TEMP 36.7; O2SAT 98
[2024-09-05] MEDS: ACETAMINOPHEN 500MG TAB 1000 MG PO (07:04)
[2024-09-05] MEDS: LABETALOL 100MG TABLET 200 MG PO (08:53)
--- NOTE | 2024-09-05 10:52 | EXP.DC.SUM ---
General Admission date:: 09/03/24 Discharge date: 09/05/24 HPI HPI HPI: She is a 19-year-old 2 para 1 at 38 and 4 weeks gestational age. She arrived in active labor and was found to be 6 cm dilated with ruptured membranes. Hospital Course Hospital Course Hospital Course: On the morning of September 03, 2024 she arrived in active labor and was found to be 6 cm dilated. She rapidly progressed to full dilation and delivered spontaneously a liveborn male child at 2:29 AM on the morning of September 03, 2024. The baby weighed 7 pounds 11 ounces and was 20 inches long. He had Apgars of 8 at 1 minute and 9 at 5 minutes. She has done well and has remained afebrile throughout her hospitalization. She is eating and drinking and ambulating. She is bottlefeeding. Her lochia is normal. She had 1 episode of elevated blood pressure but that has now settled. She will continue with her labetalol 200 mg twice daily. She has O+ blood, she is rubella immune and was group B streptococcus positive. She did receive 1 dose of clindamycin in labor. She will be discharged home today to follow-up with me in approximate 2 weeks time. She will continue with her vitamins and iron. She will continue with her labetalol for her blood pressure. She is just taking [id number] analgesics for discomfort. Her condition on discharge is stable and improved. Exam Data for Last 24 hours Vital signs and Labs for Last 24 Hours: Temp Pulse Resp BP Pulse Ox O2 Del Method 98.0 F 65 18 135/75 98 Room Air 09/05/24 04:00 09/05/24 04:00 09/05/24 04:00 09/05/24 04:00 09/05/24 04:00 09/05/24 04:00 I & O for Last 24 hours: Intake & Output 09/02/24 09/03/24 09/04/24 09/05/24 11:59 11:59 11:59 11:59 Weight 241 lb Constitutional Constitutional: no acute distress *Routine HEENT Exam Head: Present normocephalic *Routine Neck Exam Neck: Present full ROM *Routine Respiratory Exam Respiratory: Present normal respiratory effort; Absent accessory muscle use DS: Diagnosis Discharge Diagnosis (1) Chronic hypertension during , antepartum: Status: Acute Code(s): O10.919 - Unspecified pre-existing hypertension complicating , unspecified trimester (2) Normal delivery: Status: Acute Code(s): O80 - Encounter for full-term uncomplicated delivery Meds Home Medications and Allergies Home Medications ?Medication ?Instructions ?Recorded ?Confirmed ?Type labetalol 200 mg tablet 200 mg PO BID #60 tabs 08/15/24 09/03/24 Rx New Prescriptions to Start Prescriptions: Allergies Allergy/AdvReac Type Severity Reaction Status Date / Time Penicillins Allergy hives Verified 08/31/24 13:49 Discharge Plan Disposition Patient Disposition: Home, Self-Care Condition: Good Discharge Order Discharge Orders: Discharge Order (Routine); Ordered 09/05/24 Ordered By: Wilmar Scott Follow up Plan Follow up with: Wilmar Scott MD [Staff Physician] - 09/19/24 2:30 pm Prescriptions/Medication Reconciliation: Continued labetalol 200 mg tablet 200 mg PO BID Qty: 60 2RF Problem Reconciliation Problems Reviewed?: Yes Patient Discharge Instructions ACTIVITY: No heavy lifting DIET: continue same diet Patient Instructions: Depression, Hemorrhage, DI for Labor and Delivery, Vaginal , DI for Pre-eclampsia Print Language: [place] Providers Primary Care Provider: Provider,Referral Admit Provider: Wilmar Scott Attending Provider: Wilmar Scott
== END 2024-09-05 11:48 | disposition home or self-care (01) | DRG 807 ==
LOC: OBOUT 02:00 → OB 02:00
PROVIDERS: Admitting Provider Nurse Practitioner Obstetrics & Gynecology; Visit Provider Nurse Practitioner Obstetrics & Gynecology
DX: O10.92 Unspecified pre-existing hypertension complicating childbirth (principal); Z37.0 Single live birth; Z3A.38 38 weeks gestation of pregnancy
CPT/HCPCS: 59409; 36415; 59025; 80048; 80307; 81001; 84112; 85014; 85018; 85025; 86850